=== PATIENT | male | born 1965 | race Caucasian/White ===

== ENCOUNTER 2022-02-26 13:47 | Outpatient (CLI) | payer BC, SELFPAY ==
[2022-02-26 17:55] LABS: Chloride* 103 mmol/L (96-114); Potassium* 4.2 mmol/L (3.6-5.1); Sodium* 136 mmol/L (135-149)
[2022-02-26 17:58] LABS: Carbon Dioxide* 26 mmol/L (20-32); Estimated Glomerular Filt Rate 87.78
[2022-02-26 17:59] LABS: Blood Urea Nitrogen* 15 mg/dL (7-30); Glucose* 125 mg/dL (60-115)
[2022-02-26 18:28] LABS: PSA Screen* 0.56 ng/mL (0.10-4.00)
== END 2022-02-26 13:48 | disposition home or self-care (01) ==
PROVIDERS: PCP Family Medicine; Visit Provider Family Medicine
DX: Z00.00 Encounter for general adult medical examination without abnormal findings (principal); L72.3 Sebaceous cyst; Z13.1 Encounter for screening for diabetes mellitus; Z12.5 Encounter for screening for malignant neoplasm of prostate; Z95.3 Presence of xenogenic heart valve
CPT/HCPCS: 80048; 84153